=== PATIENT | male | born 1965 | race African-American/Black ===

== ENCOUNTER 2023-02-07 10:41 | Inpatient (IN) | payer OTHER ==
[2023-02-07 11:06] VITALS: BMI 31.3
[2023-02-07] MEDS ORDERED: IBUPROFEN 600 MG TABLET (FP) PO PRN (11:36)
[2023-02-07] MEDS ORDERED: BENZONATATE 200 MG CAPSULE PO PRN (11:36)
[2023-02-07] MEDS ORDERED: NALOXONE HCL (KLOXXADO) 8 MG SPRAY NS PRN (11:36)
[2023-02-07] MEDS ORDERED: MAG HYDROX/AL HYDROX/SIMETH 30 ML UNIT-DOSE CUP PO PRN (11:36)
[2023-02-07] MEDS ORDERED: ACETAMINOPHEN 325 MG TABLET (FP) PO PRN (11:36)
[2023-02-07] MEDS ORDERED: BENZOCAINE/MENTHOL (CHLORASEPTIC ) LOZENGE MM PRN (11:36)
[2023-02-07] MEDS ORDERED: NALOXONE HCL 0.4 MG/ML VIAL IM PRN (11:36)
[2023-02-07] MEDS ORDERED: BISMUTH SUBSALICYLATE 524 MG/30 ML PO PRN (11:36)
[2023-02-07] MEDS ORDERED: MAGNESIUM HYDROX 2400MG/30ML ORAL SUSPENSION 30 ML CUP PO PRN (11:36)
[2023-02-07] MEDS ORDERED: diazePAM 5 MG TABLET PO PRN (11:36)
[2023-02-07] MEDS ORDERED: METHOCARBAMOL 500 MG TABLET PO PRN (11:36)
[2023-02-07] MEDS ORDERED: hydrOXYzine PAMOATE 25 MG CAPSULE (FP) PO PRN (11:36)
[2023-02-07] MEDS ORDERED: NICOTINE 10 MG CARTRIDGE (INHALER) IH PRN (11:36)
[2023-02-07] MEDS ORDERED: LOPERAMIDE HCL 2 MG CAPSULE PO PRN (11:36)
[2023-02-07] MEDS ORDERED: POLYETHYLENE GLYCOL (HEALTHYLAX) 3350 17 GM PACKET PO PRN (11:36)
[2023-02-07] MEDS ORDERED: IBUPROFEN 400 MG TABLET (FP) PO PRN (11:36)
[2023-02-07] MEDS ORDERED: guaiFENesin 600 MG TABLET.ER (FP) PO PRN (11:36)
[2023-02-07] MEDS ORDERED: ONDANSETRON *ODT* 4 MG TABLET SL PRN (11:36)
[2023-02-07] MEDS ORDERED: DICYCLOMINE HCL 10 MG CAPSULE PO PRN (11:36)
[2023-02-07] MEDS ORDERED: HYDROCHLOROTHIAZIDE 25 MG TABLET (FP) PO ONE ×2 (11:55→17:05)
[2023-02-07] MEDS ORDERED: HYDROCHLOROTHIAZIDE 12.5 MG CAPSULE (FP) ONE (12:09)
[2023-02-07] MEDS ORDERED: amLODIPine BESYLATE 5 MG TABLET (FP) PO ONE (13:30)
[2023-02-07 15:56] LABS: HEMATOCRIT 44.4 % (35.4-49); HEMOGLOBIN 14.5 GM/dL (11.7-16.9); MCH 22.9 pg (25.7-33.7); MCHC 32.7 g/dl (32.0-35.9); MEAN PLT VOLUME 10.5 fl (7.5-11.1); PLATELET COUNT 198 10^3/uL (134-434); RBC 6.35 M/mm3 (4.00-5.60); RDW 16.9 % (11.9-15.9); WHITE BLOOD COUNT 8.5 K/mm3 (4.0-10.0)
[2023-02-07 16:38] LABS: ALBUMIN 3.8 g/dl (3.4-5.0); BILIRUBIN,TOTAL 0.4 mg/dL (0.2-1); BLOOD UREA NITROGEN 14.8 mg/dL (7-18); CALCIUM 9.3 mg/dL (8.5-10.1); CREATININE 1.2 mg/dL (0.55-1.3); TOT PROT 7.2 g/dl (6.4-8.2)
[2023-02-07] MEDS: diazePAM 5 MG TABLET PO SCH ×2 (17:18→22:19)
[2023-02-07] MEDS: MELATONIN 5 MG TABLETS PO SCH (22:19)
[2023-02-07] MEDS: THIAMINE HCL 100 MG TABLET (FP) PO SCH (22:19)
[2023-02-08] MEDS: diazePAM 5 MG TABLET PO SCH ×4 (05:56→22:19)
[2023-02-08] MEDS: PRENATAL VITAMINS W/ FOLIC ACID TABLET (FP) PO SCH (10:32)
[2023-02-08] MEDS: HYDROCHLOROTHIAZIDE 25 MG TABLET (FP) PO SCH (10:32)
[2023-02-08] MEDS: amLODIPine BESYLATE 10 MG TABLET (FP) PO SCH (10:32)
[2023-02-08] MEDS: MELATONIN 5 MG TABLETS PO SCH (22:19)
[2023-02-08] MEDS: THIAMINE HCL 100 MG TABLET (FP) PO SCH (22:19)
[2023-02-09] MEDS: diazePAM 5 MG TABLET PO SCH ×3 (05:41→23:15)
[2023-02-09] MEDS: amLODIPine BESYLATE 10 MG TABLET (FP) PO SCH (10:58)
[2023-02-09] MEDS: PRENATAL VITAMINS W/ FOLIC ACID TABLET (FP) PO SCH (10:58)
[2023-02-09] MEDS: HYDROCHLOROTHIAZIDE 25 MG TABLET (FP) PO SCH (10:58)
[2023-02-09] MEDS: MELATONIN 5 MG TABLETS PO SCH (23:15)
[2023-02-09] MEDS: THIAMINE HCL 100 MG TABLET (FP) PO SCH (23:15)
[2023-02-10] MEDS ORDERED: diazePAM 5 MG TABLET PO SCH (06:00)
[2023-02-10] MEDS: HYDROCHLOROTHIAZIDE 25 MG TABLET (FP) PO SCH (10:40)
[2023-02-10] MEDS: amLODIPine BESYLATE 10 MG TABLET (FP) PO SCH (10:40)
[2023-02-10] MEDS: PRENATAL VITAMINS W/ FOLIC ACID TABLET (FP) PO SCH (10:40)
[2023-02-10 13:40] VITALS: BP 142/90; PULSE 89; RESP 17; TEMP 97.5
[2023-02-11] MEDS ORDERED: diazePAM 5 MG TABLET PO ONE (06:00)
== END 2023-02-10 15:19 | disposition home or self-care (01) | DRG 774 ==
LOC: YASAS 10:41 → Y6N 12:14
PROVIDERS: ADMIT Allergy & Immunology; ATTEND Surgery
PROC: HZ2ZZZZ Detoxification Services for Substance Abuse Treatment (ICD-10-PCS; principal; 2023-02-07)
DX: F10.230 Alcohol dependence with withdrawal, uncomplicated (principal); F14.20 Cocaine dependence, uncomplicated; F12.20 Cannabis dependence, uncomplicated; F20.0 Paranoid schizophrenia; F31.9 Bipolar disorder, unspecified; I10 Essential (primary) hypertension; R76.11 Nonspecific reaction to tuberculin skin test without active tuberculosis; Z88.0 Allergy status to penicillin; Z28.310 Unvaccinated for COVID-19; Z28.9 Immunization not carried out for unspecified reason
CPT/HCPCS: 36415; 80053; 82140; 85027; 86780; 87811; C9803-CS; U0003; U0005

== ENCOUNTER 2023-12-19 16:26 | Inpatient (IN) | payer OTHER ==
[2023-12-19 18:41] VITALS: BMI 32.8
[2023-12-19] MEDS ORDERED: DICYCLOMINE HCL 10 MG CAPSULE PO PRN (19:55)
[2023-12-19] MEDS ORDERED: guaiFENesin 600 MG TABLET.ER (FP) PO PRN (19:55)
[2023-12-19] MEDS ORDERED: ACETAMINOPHEN 325 MG TABLET (FP) PO PRN (19:55)
[2023-12-19] MEDS ORDERED: BENZONATATE 200 MG CAPSULE PO PRN (19:55)
[2023-12-19] MEDS ORDERED: IBUPROFEN 400 MG TABLET (FP) PO PRN (19:55)
[2023-12-19] MEDS ORDERED: BISMUTH SUBSALICYLATE 524 MG/30 ML PO PRN (19:55)
[2023-12-19] MEDS ORDERED: hydrOXYzine PAMOATE 25 MG CAPSULE (FP) PO PRN (19:55)
[2023-12-19] MEDS ORDERED: MAGNESIUM HYDROX 2400MG/30ML ORAL SUSPENSION 30 ML CUP PO PRN (19:55)
[2023-12-19] MEDS ORDERED: LOPERAMIDE HCL 2 MG CAPSULE PO PRN (19:55)
[2023-12-19] MEDS ORDERED: NALOXONE HCL (KLOXXADO) 8 MG SPRAY NS PRN (19:55)
[2023-12-19] MEDS ORDERED: BENZOCAINE/MENTHOL (CHLORASEPTIC ) LOZENGE MM PRN (19:55)
[2023-12-19] MEDS ORDERED: POLYETHYLENE GLYCOL (HEALTHYLAX) 3350 17 GM PACKET PO PRN (19:55)
[2023-12-19] MEDS ORDERED: ONDANSETRON *ODT* 4 MG TABLET SL PRN (19:55)
[2023-12-19] MEDS ORDERED: NALOXONE HCL 0.4 MG/ML VIAL IM PRN (19:55)
[2023-12-19] MEDS ORDERED: NICOTINE POLACRILEX 2 MG LOZENGE BC PRN (19:55)
[2023-12-19] MEDS ORDERED: amLODIPine BESYLATE 5 MG TABLET (FP) PO SCH (20:13)
[2023-12-19] MEDS ORDERED: amLODIPine BESYLATE 5 MG TABLET (FP) ONE (20:16)
[2023-12-19] MEDS: amLODIPine BESYLATE 5 MG TABLET (FP) PO SCH (20:17)
[2023-12-19] MEDS: amLODIPine BESYLATE 10 MG TABLET (FP) PO SCH (20:27)
[2023-12-19] MEDS: THIAMINE HCL 100 MG TABLET (FP) PO SCH (22:18)
[2023-12-19] MEDS: MELATONIN 5 MG TABLETS PO SCH (22:18)
[2023-12-20] MEDS: PRENATAL VITAMINS W/ FOLIC ACID TABLET (FP) PO SCH (10:18)
[2023-12-20] MEDS: NICOTINE 14 MG/24 HOURS TOPICAL PATCH TD SCH (10:19)
[2023-12-20] MEDS ORDERED: diazePAM 5 MG TABLET PO PRN (10:32)
[2023-12-20] MEDS: diazePAM 5 MG TABLET PO SCH (10:52)
[2023-12-20 12:25] LABS: URINE APPEARANCE CLOUDY; URINE BILIRUBIN NEGATIVE (NEGATIVE); URINE COLOR YELLOW; URINE GLUCOSE (UA) NEGATIVE (NEGATIVE); URINE KETONE NEGATIVE (NEGATIVE)
[2023-12-20 12:26] LABS: PH,URINE 7.5 (5.0-8.0); URINE LEUK ESTERASE NEGATIVE (NEGATIVE); URINE NITRITE NEGATIVE (NEGATIVE); URINE PROTEIN NEGATIVE (NEGATIVE); URINE UROBILINOGEN 0.2 mg/dL (0.2-1.0)
[2023-12-20] MEDS: IBUPROFEN 600 MG TABLET (FP) PO PRN (14:02)
[2023-12-20 15:07] LABS: CHLORIDE 105 mmol/L (98-107); SODIUM 141 mmol/L (136-145)
[2023-12-20 15:11] LABS: HEMATOCRIT 44.8 % (35.4-49); HEMOGLOBIN 14.1 GM/dL (11.7-16.9); MCH 22.3 pg (25.7-33.7); MCHC 31.4 g/dl (32.0-35.9); MEAN PLT VOLUME 10.6 fl (7.5-11.1); PLATELET COUNT 195 10^3/uL (134-434); RBC 6.31 M/mm3 (4.00-5.60); RDW 16.6 % (11.9-15.9); WHITE BLOOD COUNT 6.2 K/mm3 (4.0-10.0)
[2023-12-20 15:14] LABS: ALBUMIN 3.2 g/dl (3.4-5.0); CALCIUM 9.3 mg/dL (8.5-10.1)
[2023-12-20 15:15] LABS: ANION GAP 6 mmol/L (4-13); BLOOD UREA NITROGEN 13.1 mg/dL (7-18); CO2 29 mmol/L (21-32); GLUCOSE,RANDOM 100 mg/dL (74-106)
[2023-12-20 15:17] LABS: CREATININE 0.8 mg/dL (0.55-1.3); SGOT/AST 25 U/L (15-37)
[2023-12-20 15:18] LABS: SGPT/ALT 40 U/L (13-61)
[2023-12-20 15:19] LABS: BILIRUBIN,TOTAL 0.2 mg/dL (0.2-1); TOT PROT 6.2 g/dl (6.4-8.2)
[2023-12-20 15:20] LABS: ALK PHOS 93 U/L (45-117)
[2023-12-20 16:05] LABS: HIV INTERPRETATION NEGATIVE (NEGATIVE)
[2023-12-21] MEDS: HYDROCHLOROTHIAZIDE 25 MG TABLET (FP) PO SCH (10:29)
[2023-12-21] MEDS: MAG HYDROX/AL HYDROX/SIMETH 30 ML UNIT-DOSE CUP PO PRN (21:25)
[2023-12-22] MEDS: diazePAM 5 MG TABLET PO SCH (05:23)
[2023-12-23] MEDS: diazePAM 5 MG TABLET PO SCH (05:29)
[2023-12-23 11:17] LABS: BASO % 0.3 % (0-2.0); EOS % 1.8 % (0-4.5); HEMATOCRIT 45.1 % (35.4-49); HEMOGLOBIN 14.1 GM/dL (11.7-16.9); LYMPH % 25.8 % (8-40); MCH 22.1 pg (25.7-33.7); MCHC 31.3 g/dl (32.0-35.9); MEAN CELL VOLUME 70.6 fl (80-96); MEAN PLT VOLUME 10.5 fl (7.5-11.1); MONO % 9.9 % (3.8-10.2); NEUT % 62.2 % (42.8-82.8); PLATELET COUNT 194 10^3/uL (134-434); RBC 6.39 M/mm3 (4.00-5.60); RDW 16.4 % (11.9-15.9); WHITE BLOOD COUNT 8.6 K/mm3 (4.0-10.0)
[2023-12-24] MEDS: diazePAM 5 MG TABLET PO ONE (05:30)
[2023-12-25 09:07] VITALS: RESP 19
[2023-12-25 13:08] VITALS: BP 145/87; PULSE 85; TEMP 97.6
== END 2023-12-25 14:24 | disposition other institution (70) | DRG 774 ==
LOC: YASAS 16:26 → Y3N 20:53
PROVIDERS: ADMIT Allergy & Immunology; ATTEND Surgery
PROC: HZ2ZZZZ Detoxification Services for Substance Abuse Treatment (ICD-10-PCS; principal; 2023-12-19)
DX: F10.230 Alcohol dependence with withdrawal, uncomplicated (principal); F14.20 Cocaine dependence, uncomplicated; F12.20 Cannabis dependence, uncomplicated; F25.9 Schizoaffective disorder, unspecified; I10 Essential (primary) hypertension; R76.11 Nonspecific reaction to tuberculin skin test without active tuberculosis; Z87.891 Personal history of nicotine dependence; Z87.19 Personal history of other diseases of the digestive system; Z28.310 Unvaccinated for COVID-19; Z28.9 Immunization not carried out for unspecified reason; Z88.0 Allergy status to penicillin
CPT/HCPCS: 36415; 71046-TC-FY; 80053; 80307; 81003; 85025; 85027; 86780; 87389; 87635; 87811; 93005; 93010

== ENCOUNTER 2025-01-01 13:34 | Inpatient (IN) | payer OTHER ==
[2025-01-01 14:28] VITALS: BMI 32.2
[2025-01-01] MEDS ORDERED: NALOXONE (NARCAN) HCL 4 MG/0.1 ML SPRAY NS PRN (16:48)
[2025-01-01] MEDS ORDERED: LOPERAMIDE HCL 2 MG CAPSULE PO PRN (16:48)
[2025-01-01] MEDS ORDERED: POLYETHYLENE GLYCOL (HEALTHYLAX) 3350 17 GM PACKET PO PRN (16:48)
[2025-01-01] MEDS ORDERED: BENZONATATE 200 MG CAPSULE PO PRN (16:48)
[2025-01-01] MEDS ORDERED: MAGNESIUM HYDROX 2400MG/30ML ORAL SUSPENSION 30 ML CUP PO PRN (16:48)
[2025-01-01] MEDS ORDERED: guaiFENesin 600 MG TABLET.ER (FP) PO PRN (16:48)
[2025-01-01] MEDS ORDERED: BENZOCAINE/MENTHOL (CHLORASEPTIC ) LOZENGE MM PRN (16:48)
[2025-01-01] MEDS ORDERED: P-EPHED 60MG/TRIPROLIDI 2.5MG TABLET PO PRN (16:48)
[2025-01-01] MEDS: amLODIPine BESYLATE 5 MG TABLET (FP) PO SCH (19:14)
[2025-01-01] MEDS: ACETAMINOPHEN 325 MG TABLET (FP) PO PRN (19:14)
[2025-01-01] MEDS: THIAMINE 100 MG TABLET PO SCH (22:00)
[2025-01-01] MEDS: MELATONIN 5 MG TABLETS PO SCH (22:00)
[2025-01-01] MEDS: cloNIDine HCL 0.1 MG TABLET PO ONE (22:54)
[2025-01-02 00:17] LABS: URINE APPEARANCE CLOUDY; URINE BILIRUBIN NEGATIVE (NEGATIVE); URINE COLOR YELLOW; URINE GLUCOSE (UA) NEGATIVE (NEGATIVE); URINE KETONE NEGATIVE (NEGATIVE); URINE LEUK ESTERASE NEGATIVE (NEGATIVE); URINE NITRITE NEGATIVE (NEGATIVE); URINE PROTEIN NEGATIVE (NEGATIVE); URINE UROBILINOGEN 0.2 mg/dL (0.2-1.0)
[2025-01-02] MEDS: HYDROCHLOROTHIAZIDE 25 MG TABLET (FP) PO SCH (10:11)
[2025-01-02] MEDS: PRENATAL VITAMINS W/ FOLIC ACID TABLET (FP) PO SCH (10:11)
[2025-01-02] MEDS: IBUPROFEN 600 MG TABLET (FP) PO PRN (10:12)
[2025-01-02 11:07] LABS: HEMATOCRIT 40.1 % (35.4-49); HEMOGLOBIN 12.8 GM/dL (11.7-16.9); MCH 22.3 pg (25.7-33.7); MCHC 31.9 g/dl (32.0-35.9); MEAN CELL VOLUME 69.9 fl (80-96); PLATELET COUNT 218 10^3/uL (134-434); RBC 5.74 M/mm3 (4.00-5.60); RDW 16.2 % (11.9-15.9); WHITE BLOOD COUNT 5.3 K/mm3 (4.0-10.0)
[2025-01-02 11:09] LABS: POTASSIUM 3.9 mmol/L (3.5-5.1)
[2025-01-02 11:12] LABS: BLOOD UREA NITROGEN 12.8 mg/dL (7-18); CALCIUM 8.7 mg/dL (8.5-10.1)
[2025-01-02 11:15] LABS: CREATININE 0.9 mg/dL (0.55-1.3)
[2025-01-02 11:17] LABS: BILIRUBIN,TOTAL 0.3 mg/dL (0.2-1); TOT PROT 5.8 g/dl (6.4-8.2)
[2025-01-02] MEDS ORDERED: hydrOXYzine PAMOATE 25 MG CAPSULE (FP) PO PRN (14:59)
[2025-01-02] MEDS: busPIRone HCL 10 MG TABLET (FP) PO SCH (21:36)
[2025-01-02] MEDS: IBUPROFEN 400 MG TABLET (FP) PO PRN (21:37)
[2025-01-02] MEDS: SUVOREXANT 10 MG TABLET PO PRN (22:04)
[2025-01-02] MEDS: hydrOXYzine PAMOATE 25 MG CAPSULE (FP) PO PRN (22:23)
[2025-01-03] MEDS: FLUoxetine HCL 20 MG CAPSULE PO SCH (10:11)
[2025-01-04] MEDS: LIDOCAINE 5% TOPICAL PATCH TP SCH (14:39)
[2025-01-04] MEDS: MAG HYDROX/AL HYDROX/SIMETH 30 ML UNIT-DOSE CUP PO PRN (20:53)
[2025-01-04] MEDS: LIDOCAINE PATCH REMOVAL MC SCH (21:42)
[2025-01-04] MEDS: ACETAMINOPHEN 325 MG TABLET (FP) PO PRN (21:43)
[2025-01-05] MEDS: amLODIPine BESYLATE 2.5 MG TABLET (FP) PO SCH (09:49)
[2025-01-05] MEDS: IBUPROFEN 600 MG TABLET (FP) PO PRN (09:50)
[2025-01-05 17:27] LABS: HIV INTERPRETATION NEGATIVE (NEGATIVE)
[2025-01-05] MEDS ORDERED: SUVOREXANT 15 MG TABLET PO PRN (22:00)
[2025-01-07] MEDS: SUVOREXANT 20 MG TABLET PO PRN (21:19)
[2025-01-11] MEDS: SUVOREXANT 20 MG TABLET PO PRN (21:25)
[2025-01-12] MEDS: LIDOCAINE 5% TOPICAL PATCH TP SCH (06:43)
[2025-01-12] MEDS: MIRTAZAPINE 15 MG TABLET (FP) PO SCH (21:12)
[2025-01-13] MEDS: buPROPion HCL 75 MG TABLET PO SCH (06:58)
[2025-01-13] MEDS: BACLOFEN 10 MG TABLET (FP) PO SCH (17:48)
[2025-01-15] MEDS: SUVOREXANT 20 MG TABLET PO PRN (21:18)
[2025-01-16] MEDS: LIDOCAINE 5% TOPICAL PATCH TP SCH (10:04)
[2025-01-20] MEDS: SUVOREXANT 20 MG TABLET PO PRN (21:09)
[2025-01-22] MEDS: TAMSULOSIN HCL 0.4 MG CAP PO SCH (10:47)
[2025-01-22] MEDS: GABAPENTIN 100 MG CAPSULE PO SCH (14:16)
[2025-01-24] MEDS: SUVOREXANT 20 MG TABLET PO PRN (21:15)
[2025-01-28 20:53] VITALS: RESP 17
[2025-01-29 06:36] VITALS: BP 144/88; PULSE 65; TEMP 97.2
== END 2025-01-29 07:00 | disposition home or self-care (01) | DRG 772 ==
LOC: YASAS 13:34 → Y3E 18:13
PROVIDERS: ADMIT Psychiatry & Neurology Pain Medicine; ATTEND Psychiatry & Neurology Pain Medicine
PROC: HZ42ZZZ Group Counseling for Substance Abuse Treatment, Cognitive-Behavioral (ICD-10-PCS; principal; 2025-01-01)
DX: F14.20 Cocaine dependence, uncomplicated (principal); F12.20 Cannabis dependence, uncomplicated; F19.280 Other psychoactive substance dependence with psychoactive substance-induced anxiety disorder; F19.282 Other psychoactive substance dependence with psychoactive substance-induced sleep disorder; F19.24 Other psychoactive substance dependence with psychoactive substance-induced mood disorder; F25.9 Schizoaffective disorder, unspecified; F31.9 Bipolar disorder, unspecified; I10 Essential (primary) hypertension; K21.9 Gastro-esophageal reflux disease without esophagitis; M54.12 Radiculopathy, cervical region; M25.562 Pain in left knee; M54.50 Low back pain, unspecified; G89.29 Other chronic pain; Z87.891 Personal history of nicotine dependence; Z99.89 Dependence on other enabling machines and devices
CPT/HCPCS: 36415; 71046-TC-FY; 73130-TC-RT-FY; 80053; 80305; 80307; 81003; 85027; 86780; 86803; 87389; 87811; 93005; 93010; J0475